=== PATIENT | female | born 1985 | race Caucasian/White ===

== ENCOUNTER 2018-04-02 22:26 | Emergency (ER) | payer OTHER ==
[2018-04-02 22:47] VITALS: RESP 18; O2SAT 98
[2018-04-02 22:55] VITALS: BMI 40.5
--- NOTE | 2018-04-02 22:55 | ED PDOC ---
Arrival/HPI - General Historian: Patient - History of Present Illness Time/Duration: Other (see hpi) Context: Home <Harjinder Drake - Last Filed: 04/03/18 00:58> <Zi Cornejo - Last Filed: 04/03/18 07:00> - General Chief Complaint: Psychiatric Evaluation Time Seen by Provider: 04/02/18 22:55 - History of Present Illness Narrative History of Present Illness (Text): 04/02/18 22:55 This 32 yo female with pmh depression, presents to this ED by BLS for depression , and suicidal ideation x 2 hours. Patient stated she became upset with her on the phone, and she told she was going to "kill" herself. Patient stated called one of his friends, who eventually called ambulance and picked patient up. Patient denies plan. (Harjinder Drake) Past Medical History - Provider Review Nursing Documentation Reviewed: Yes - Infectious Disease Hx of Infectious Diseases: None - Cardiac Hx Cardiac Disorders: No - Pulmonary Hx Respiratory Disorders: No - Neurological Hx Neurological Disorder: Yes Hx Seizures: Yes Hx Syncope: Yes - HEENT Hx HEENT Disorder: No - Renal Hx Renal Disorder: No - Endocrine/Metabolic Hx Endocrine Disorders: No - Hematological/Oncological Hx Blood Disorders: No - Integumentary Hx Dermatological Disorder: No - Musculoskeletal/Rheumatological Hx Musculoskeletal Disorders: No - Gastrointestinal Hx Gastrointestinal Disorders: No - Genitourinary/Gynecological Hx Genitourinary Disorders: No - Psychiatric Hx Psychophysiologic Disorder: Yes Hx Substance Use: No Other/Comment: SI with a plan - Surgical History Hx Cholecystectomy: Yes <Harjinder Drake - Last Filed: 04/03/18 00:58> Family/Social History - Physician Review Nursing Documentation Reviewed: Yes Family/Social History: Other (noncontributory) Smoking Status: Hookah Hx Alcohol Use: No Hx Substance Use: No <Harjinder Drake - Last Filed: 04/03/18 00:58> Allergies/Home Meds <Harjinder Drake - Last Filed: 04/03/18 00:58> <Zi Cornejo - Last Filed: 04/03/18 07:00> Allergies/Adverse Reactions: Allergies No Known Allergies Allergy (Verified 04/02/18 22:56) Home Medications: Home Meds Medication Instructions Recorded Confirmed No Known Home Med 04/02/18 04/02/18 Review of Systems - Review of Systems Constitutional: Normal. absent: Fatigue, Weight Change, Fevers, Night Sweats Eyes: Normal ENT: Normal Respiratory: Normal Cardiovascular: Normal Gastrointestinal: Normal Genitourinary Female: Normal Musculoskeletal: Normal Skin: Normal Neurological: Normal Endocrine: Normal Hemo/Lymphatic: Normal Psychiatric: Depression, Suicidal Ideation <Harjinder Drake P - Last Filed: 04/03/18 00:58> Physical Exam Temperature: Afebrile Blood Pressure: Normal Pulse: Regular Respiratory Rate: Normal Appearance: Positive for: Well-Appearing, Non-Toxic, Comfortable Pain Distress: None Mental Status: Positive for: Alert and Oriented X 3 - Systems Exam Head: Present: Atraumatic, Normocephalic Pupils: Present: PERRL Extroacular Muscles: Present: EOMI Conjunctiva: Present: Normal Mouth: Present: Moist Mucous Membranes Neck: Present: Normal Range of Motion Respiratory/Chest: Present: Clear to Auscultation, Good Air Exchange. No: Respiratory Distress, Accessory Muscle Use, Wheezes, Retracting, Rhonchi, Tachypneic Cardiovascular: Present: Regular Rate and Rhythm, Normal S1, S2. No: Murmurs Abdomen: No: Tenderness, Distention, Peritoneal Signs, Rebound, Guarding Back: Present: Normal Inspection. No: CVA Tenderness Upper Extremity: Present: Normal Inspection, Normal ROM, NORMAL PULSES, Neurovascularly Intact, Capillary Refill < 2s. No: Cyanosis, Edema Lower Extremity: Present: Normal Inspection, NORMAL PULSES, Normal ROM, Neurovascularly Intact, Capillary Refill < 2 s. No: Edema Neurological: Present: GCS=15, CN II-XII Intact, Speech Normal, Motor Func Grossly Intact, Normal Sensory Function, Normal Cerebellar Funct, Gait Normal, Memory Normal Skin: Present: Warm, Dry, Normal Color. No: Rashes Psychiatric: Present: Alert, Oriented x 3, Depressed Mood, Suicidal Ideation <Harjinder Drake P - Last Filed: 04/03/18 00:58> Vital Signs Temp Pulse Resp BP Pulse Ox 04/03/18 06:19 97 H 18 103/75 98 04/02/18 22:47 99.2 F 96 H 18 102/71 98 Medical Decision Making <Harjinder Drake P - Last Filed: 04/03/18 00:58> <Zi Cornejo - Last Filed: 04/03/18 07:00> ED Course and Treatment: 04/03/18 4:30 Pt seen and evaluated by ANDRESSA Rossi, who discussed case with psychiatrist health information clerk. Pt will remain in ER until later this morning for face to face evaluation with psychiatrist. 04/03/18 07:00 Pt in no acute distress. Case endorsed to Dr. Carrasquillo, pending face to face evaluation with psychiatrist and disposition. (Zi Cornejo) - Lab Interpretations Lab Results: 04/03/18 00:04 04/03/18 00:04 Lab Results 04/03/18 00:04: Urine Color Yellow, Urine Appearance Clear, Urine pH 6.0, Ur Specific [place] <= 1.005, Urine Protein Negative, Urine Glucose (UA) Negative, Urine Ketones Negative, Urine Blood Negative, Urine Nitrate Negative, Urine Bilirubin Negative, Urine Urobilinogen 0.2, Ur Leukocyte Esterase Small H, Urine RBC 0 - 2, Urine WBC 1 - 3, Ur Epithelial Cells 0 - 2, Urine HCG, Qual Negative 04/03/18 00:04: Urine Opiates Screen Negative, Urine Methadone Screen Negative, Ur Barbiturates Screen Negative, Ur Phencyclidine Scrn Negative, Ur Amphetamines Screen Negative, U Benzodiazepines Scrn Negative, U Oth Cocaine Metabols Negative, U Cannabinoids Screen Negative 04/03/18 00:04: Alcohol, Quantitative < 10 04/03/18 00:04: Salicylates < 1 L, Acetaminophen < 10.0 L 04/03/18 00:04: Sodium 141, Potassium 3.9, Chloride 105, Carbon Dioxide 23, Anion Gap 17, BUN 8, Creatinine 0.5 L, Est GFR ( Amer) > 60, Est GFR (Non -Af Amer) > 60, Random Glucose 86, Calcium 8.8, Magnesium 2.0, Total Bilirubin 0.3, AST 18, ALT 16, Alkaline Phosphatase 73, Total Protein 7.6, Albumin 4.1, Globulin 3.5, Albumin/Globulin Ratio 1.2 04/03/18 00:04: WBC 14.1 H, RBC 4.81, Hgb 11.9 L, Hct 36.5, MCV 75.9 L, MCH 24.7 L, MCHC 32.6, RDW 14.5, Plt Count 433, MPV 9.9, Gran % 70.6 H, Lymph % ( Auto) 24.4, [place] % (Auto) 4.5, Eos % (Auto) 0.4 L, Baso % (Auto) 0.1, Gran # 9.99 H, Lymph # (Auto) 3.5 H, [place] # (Auto) 0.6, Eos # (Auto) 0.1, Baso # (Auto ) 0.02 - RAD Interpretation Radiology Orders: 04/02/18 23:03 CHEST PORTABLE [RAD] Stat - PA / REPAIR SPECIALIST / Resident Statement MD/DO has reviewed & agrees with the documentation as recorded. / has examined the patient and agrees with the treatment plan. <Zi Cornejo - Last Filed: 04/03/18 07:00> Disposition/Present on Arrival - Present on Arrival History of DVT/PE: No History of Uncontrolled Diabetes: No Urinary Catheter: No History of Decub. Ulcer: No History Surgical Site Infection Following: None <Harjinder Drake - Last Filed: 04/03/18 00:58> - Present on Arrival Any Indicators Present on Arrival: No - Disposition Have Diagnosis and Disposition been Completed?: No Disposition Time: 07:00 <Zi Cornejo - Last Filed: 04/03/18 07:00> - Disposition Diagnosis: Depression Condition: STABLE Referrals: FAMILY PROVIDER,NO [Primary Care Provider] - Follow up with primary Forms: [employer] (Djiboutian)
[2018-04-03 00:27] LABS: BASO # 0.02 K/mm3 (0.0-2.0); BASO % 0.1 % (0.0-3.0); EOS # 0.1 (0.0-0.7); EOS % 0.4 % (1.5-5.0); GRAN # 9.99 (1.4-6.5); GRAN % 70.6 % (50.0-68.0); HEMOGLOBIN 11.9 g/dL (12.0-16.0); LYMPH # 3.5 (1.2-3.4); LYMPH % 24.4 % (22.0-35.0); MEAN CELL VOLUME 75.9 fl (80.0-105.0); MEAN CORPUSCULAR HEMOGLOBIN 24.7 pg (25.0-35.0); MEAN CORPUSCULAR HGB CONC 32.6 g/dl (31.0-37.0); MEAN PLATELET VOLUME 9.9 fl (7.0-11.0); MONO # 0.6 (0.1-0.6); MONO % 4.5 % (1.0-6.0); RBC 4.81 10^6/uL (3.5-6.1); RED CELL DISTRIBUTION WIDTH 14.5 % (11.5-14.5); WHITE BLOOD COUNT 14.1 10^3/ul (4.5-11.0)
[2018-04-03 00:33] LABS: HCG,QUALITATIVE URINE NEGATIVE (NEGATIVE)
[2018-04-03 00:34] LABS: URINE BILIRUBIN NEGATIVE (NEGATIVE); URINE BLOOD NEGATIVE (NEGATIVE); URINE GLUCOSE (UA) NEGATIVE (NEGATIVE); URINE LEUKOCYTE ESTERASE SMALL Leu/uL (NEGATIVE); URINE PROTEIN NEGATIVE mg/dL (<30 mg/dL); URINE UROBILINOGEN 0.2 E.U./dL (<1 E.U./dL)
[2018-04-03 00:35] LABS: URINE APPEARANCE CLEAR (CLEAR); URINE COLOR YELLOW (YELLOW)
[2018-04-03 00:37] LABS: ALB/GLOB RATIO 1.2 (1.1-1.8); ALBUMIN 4.1 g/dL (3.0-4.8); ALT/SGPT 16 U/L (7-56); AST/SGOT 18 U/L (14-36); BLOOD UREA NITROGEN 8 mg/dL (7-21); CALCIUM 8.8 mg/dL (8.4-10.5); GFR AFRICAN-AMERICAN > 60; GFR NON-AFRICAN AMERICAN > 60
[2018-04-03 00:47] LABS: BARBITURATES, UR NEGATIVE (NEGATIVE); BENZODIAZEPINES, UR NEGATIVE (NEGATIVE); OPIATES, UR NEGATIVE (NEGATIVE); PHENCYCLIDINE, UR NEGATIVE (NEGATIVE)
[2018-04-03 00:52] LABS: ACETAMINOPHEN < 10.0 ug/ml (10.0-20.0); SALICYLATE < 1 mg/dL (2.0-20.0)
[2018-04-03 00:54] LABS: URINE EPITHELIAL CELLS 0 - 2 /hpf (0-5); URINE RBC 0 - 2 /hpf (0-2)
--- NOTE | 2018-04-03 07:35 | ED PDOC ---
Physical Exam Vital Signs Reviewed: Yes Vital Signs Temp Pulse Resp BP Pulse Ox 04/03/18 06:19 97 H 18 103/75 98 04/02/18 22:47 99.2 F 96 H 18 102/71 98 Temperature: Afebrile Blood Pressure: Normal Pulse: Tachycardic Respiratory Rate: Normal Medical Decision Making ED Course and Treatment: 04/03/18 07:34 Patient endorsed to me by Dr. Cornejo, awaiting evaluation by psych. - Lab Interpretations Lab Results: 04/03/18 00:04 04/03/18 00:04 Lab Results 04/03/18 00:04: Urine Color Yellow, Urine Appearance Clear, Urine pH 6.0, Ur Specific [place] <= 1.005, Urine Protein Negative, Urine Glucose (UA) Negative, Urine Ketones Negative, Urine Blood Negative, Urine Nitrate Negative, Urine Bilirubin Negative, Urine Urobilinogen 0.2, Ur Leukocyte Esterase Small H, Urine RBC 0 - 2, Urine WBC 1 - 3, Ur Epithelial Cells 0 - 2, Urine HCG, Qual Negative 04/03/18 00:04: Urine Opiates Screen Negative, Urine Methadone Screen Negative, Ur Barbiturates Screen Negative, Ur Phencyclidine Scrn Negative, Ur Amphetamines Screen Negative, U Benzodiazepines Scrn Negative, U Oth Cocaine Metabols Negative, U Cannabinoids Screen Negative 04/03/18 00:04: Alcohol, Quantitative < 10 04/03/18 00:04: Salicylates < 1 L, Acetaminophen < 10.0 L 04/03/18 00:04: Sodium 141, Potassium 3.9, Chloride 105, Carbon Dioxide 23, Anion Gap 17, BUN 8, Creatinine 0.5 L, Est GFR ( Amer) > 60, Est GFR (Non -Af Amer) > 60, Random Glucose 86, Calcium 8.8, Magnesium 2.0, Total Bilirubin 0.3, AST 18, ALT 16, Alkaline Phosphatase 73, Total Protein 7.6, Albumin 4.1, Globulin 3.5, Albumin/Globulin Ratio 1.2 04/03/18 00:04: WBC 14.1 H, RBC 4.81, Hgb 11.9 L, Hct 36.5, MCV 75.9 L, MCH 24.7 L, MCHC 32.6, RDW 14.5, Plt Count 433, MPV 9.9, Gran % 70.6 H, Lymph % ( Auto) 24.4, [place] % (Auto) 4.5, Eos % (Auto) 0.4 L, Baso % (Auto) 0.1, Gran # 9.99 H, Lymph # (Auto) 3.5 H, [place] # (Auto) 0.6, Eos # (Auto) 0.1, Baso # (Auto ) 0.02 - RAD Interpretation Radiology Orders: 04/02/18 23:03 CHEST PORTABLE [RAD] Stat - Scribe Statement The provider has reviewed the documentation as recorded by the Scribe Muriel Dias Provider Scribe Attestation: All medical record entries made by the Scribe were at my direction and personally dictated by me. I have reviewed the chart and agree that the record accurately reflects my personal performance of the history, physical exam, medical decision making, and the department course for this patient. I have also personally directed, reviewed, and agree with the discharge instructions and disposition. Disposition/Present on Arrival - Present on Arrival Any Indicators Present on Arrival: No History of DVT/PE: No History of Uncontrolled Diabetes: No Urinary Catheter: No History of Decub. Ulcer: No History Surgical Site Infection Following: None - Disposition Have Diagnosis and Disposition been Completed?: Yes Diagnosis: Depression Disposition: AGAINST MEDICAL ADVICE Disposition Time: 11:00 Condition: UNKNOWN Discharge Instructions (ExitCare): Depression, Adult (DC) Additional Instructions: JOSIAS TAPIA, thank you for letting us take care of you today. The emergency medical care you received today was directed at your acute symptoms. If you were prescribed any medication, please fill it and take as directed. It may take several days for your symptoms to resolve. Return to the Emergency Department if your symptoms worsen, do not improve, or if you have any other problems. Please contact your doctor or call one of the physicians/clinics you have been referred to that are listed on the Patient Visit Information form that is included in your discharge packet. Bring any paperwork you were given at discharge with you along with any medications you are taking to your follow up visit. Our treatment cannot replace ongoing medical care by a primary care provider outside of the emergency department. Thank you for allowing the [facility] team to be part of your care today. YOU SIGNED OUT AGAINST MEDICAL ADVICE. PLEASE FOLLOW UP WITH YOUR PRIMARY DOCTOR AND WITH [place] DIRECTED BY OUR PSYCHIATRIC STAFF SOON POSSIBLE. Referrals: FAMILY PROVIDER,NO [Primary Care Provider] - Follow up with primary Forms: [employer] (Iraqi)
[2018-04-03 08:07] VITALS: BP 95/50
--- NOTE | 2018-04-03 08:13 | RAD ---
HISTORY: PES eval COMPARISON: No prior. FINDINGS: LUNGS: No active pulmonary disease. PLEURA: No significant pleural effusion identified, no pneumothorax apparent. CARDIOVASCULAR: Normal. OSSEOUS STRUCTURES: No significant abnormalities. VISUALIZED UPPER ABDOMEN: Normal. OTHER FINDINGS: None. IMPRESSION: No active disease.
[2018-04-03 10:03] VITALS: PULSE 92; TEMP 98.2
--- NOTE | 2018-04-03 10:06 | CARD ---
APPROVED REPORT EKG Measurement Heart [id number] <Conclusion> Normal sinus rhythm PRWP V 3 - V6, possible lead positioning
--- NOTE | 2018-04-03 19:29 | CON ---
DATE: 04/03/2018 HISTORY OF PRESENT ILLNESS: In short, the patient is a 32-year-old [place] female with self-reported history of depression, adjustment disorder. The patient was brought in by ambulance after the patient was making threats to her that she is going to kill herself. The patient was evaluated by PAS worker and psychiatrist on-call recommended [id number] evaluation at the morning time in the emergency room. The patient was seen and examined. The patient presented to be sleepy, but easily arousable. The patient seems to be a good historian, and was able to provide decent past history. The patient reported that she got 2 months ago. The patient reported that her took vacation by himself and currently he is in [place]. The patient reported that she was not approving that vacation, but her still left her. The patient reported that she did not live with her because of her legal documents and pending legalizations of documents. The patient reported that she was feeling depressed and lonely, but adamantly denied that she wanted to end up her life. She reported that she said something out of anger to her , which led him to call his friend and his friend called 911 and the patient was brought in to the emergency room. The patient reported that her left 1 week ago, and he is planning to stay in [place] for another 3 weeks. The patient reported that she was feeling lonely because her closest friend in the [facility] also went to [place] for vacation. At the same time, the patient said that she has future oriented plans. She has scheduled an appointment at a [facility], and she wants to have her hair done. The patient reported that she talked to her family in [place] on a daily basis. The patient reported that she has no history of hearing voices. She denied that she feels anxious at the present moment. The patient reported that she has good appetite and sleep. The patient reported that she is not using any drugs and not drinking alcohol. The patient reported that she has no history of psych admissions in the past. The patient tried to overdose on medication about a year ago for the same reason with her 's boyfriend last year. Overall, the patient presented to be alert and oriented, pleasant, cooperative. Affect was bright. Speech was normal rate, tone, quality and quantity. Mood described as, "I feel okay now." Affect was reactive. Mood, congruent. Thought process, coherent and goal-directed. Thought content, the patient denied visual, auditory, or tactile hallucinations. Denied paranoid ideation. The patient denied thoughts of harming herself or others. Denied intents or plan. Insight and judgment seems to be fair. Impulses are well controlled. Vital signs were reviewed. Temperature 98.5, pulse is 97, blood pressure 95/50, respirations 18, oxygen saturation is 98. Medications are none. Labs were reviewed. WBC 14.1, hemoglobin and hematocrit are 11.9 and 36.5. Chemistry was reviewed. Creatinine is 0.5. Urinalysis showed leukocyte esterase is small. Toxicology is negative for any substances. Overall, as per collateral information from the emergency room physician as well as nursing staff, the patient does not exhibit any aggressive or agitated behavior. The patient presented well in the emergency room. There was no psychotic symptoms observed or reported. IMPRESSION: Rule out adjustment disorder with depressed mood. PLAN: This process description writer offered the patient admission to the Psychiatric Inpatient Unit. The patient declined that offer. The patient does not want to stay in the hospital, and the patient does not want to take any medications. The patient said that she feels fine and she does not want to kill herself. The patient also reported that she has future-oriented plans, and she does not want to kill herself or kill others. At present moment, the patient might benefit from supportive therapy and medication management, but the patient declined that offer. At the same time, the patient does not meet the criteria for screening at this point. This process description writer suggested psych admission, but the patient declined that offer. The patient should be discharged against medical advice. The patient is deemed to have that capacity to make that decision. The patient also said in the future if she would have thoughts of harming herself, she will call 911 or just bring herself back to the hospital. The case was discussed with emergency room physician as well as nursing staff. This process description writer will advice to provide the patient with information about [facility], [facility] as well as [facility] and [facility] outpatient clinics. Thank you very much for letting me participate in the care of your patient. Irena Vazquez MD [facility] # [id number]
== END 2018-04-03 10:02 | disposition left against medical advice (07) ==
LOC: EDBD 22:26 → ED 22:26
DX: F32.9 Major depressive disorder, single episode, unspecified (principal)